=== PATIENT | male | born 2000 | race Two or more races ===

== ENCOUNTER 2022-07-05 18:02 | Inpatient (IN) ==
[2022-07-05] MEDS ORDERED: SODIUM CHLORIDE 0.9% 1000ML 2,000 ML IV ONE (18:27)
--- NOTE | 2022-07-05 18:31 | Emergency Department Note ---
Impression & Plan Rhabdomyolysis, Transaminitis ED Provider Note NAME: DEREK MCMAHAN AGE: 21 SEX: M : 2000 ARRIVES VIA: Walk-In INFORMANT: Patient ED PROVIDER(S): Kash Masters DO CHIEF COMPLAINT: b/l leg pain HPI: Patient is a 21-year-old male who presents to the ER for bilateral leg pain. He was doing leg day and was having pain following this. Started about 4 days ago. He denies any headache or change in vision. No chest pain or shortness of breath. No nausea vomiting or diarrhea. No dysuria, urgency, or frequency. No other exacerbating or remitting factors. He believes that his calves are swelling. He denies any numbness. ROS: See above HPI for pertinent positives & negatives. A total of 10 systems reviewed and were otherwise negative. PAST MEDICAL HISTORY:See Below PAST SURGICAL HISTORY:See Below FAMILY HISTORY:See Below SOCIAL HISTORY:See Below HOME MEDICATIONS:See Below ALLERGIES:See Below VITALS:See Below PHYSICAL EXAMINATION: GENERAL: Sitting up in bed, alert, well appearing, well nourished, no distress, non-toxic EYE EXAM: normal conjunctiva. PERRL and EOM's grossly intact. OROPHARYNX: no exudate, no erythema, lips, buccal mucosa, and tongue normal and mucous membranes are moist NECK: supple, no nuchal rigidity, no adenopathy, non-tender LUNGS: Clear to auscultation. Normal chest wall mechanics HEART: no murmurs, S1 normal and S2 normal ABDOMEN: abdomen soft, non-tender, normo-active bowel sounds, no masses, no rebound or guarding. UPPER EXTREMITIES: upper extremities are grossly normal. LOWER EXTREMITIES: Flexion-extension bilateral hips knees ankles intact. DPs and PTs 2 out of 4. Gross sensation intact. Significant pain on palpation. NEURO EXAM: Normal sensorium, cranial nerves II-XII grossly intact, normal s peech, no gross weakness of arms, no gross weakness of legs. MEDICAL DECISION MAKING: Patient is a 21-year-old male who presents the ER for bilateral calf pain after working out. Has been gradually getting worse. Denies any dark discoloring urine. CBC shows no significant leukocytosis or anemia. BMP was unremarkable. LFTs with a transaminitis. CK elevated had 12,000. Lipase normal. UA with trace protein. COVID was negative. Patient was given 2 L of IV fluids. He was updated bedside. Duplex of the lower extremities was negative. Discussed with the hospitalist for further evaluation Dr. Cuong Matthew. Triage Nursing notes reviewed. Limited review of prior medical records performed Vital Signs: reviewed and remarkable for tachy Differential diagnosis: Infection, dehydration, metabolic abnormality, hypo/hyperglycemia, electrolyte disturbance, anemia, hypoxia, cardiac sources, intracerebral event, toxicologic, neurologic, as well as other pathologies. ER treatment provided: See below Diagnostics interpreted by me: ECG: none Cardiac Monitoring: An order was placed for continuous cardiac monitoring. The monitor shows a rate of 101 with sinus rhythm. Laboratory studies: As stated above and show below. Imaging studies: Duplex of the lower extremities was negative Consultation(s): Discussed with Cuong Matthew for further evaluation Procedures: none Critical Care: None Past Med/Surg History Family History Grandmother Heart disease Social History Smoking Status: Current every day smoker Tobacco Type: Cigarettes packs per day: 1; marital status: Single current occupational status: student Feels Safe at Home: Yes Allergies Allergies Allergy/AdvReac Type Severity Reaction Status Date / Time No Known Allergies Allergy Verified 07/05/22 19:12 Home Meds Home Medications Medication Instructions Recorded Confirmed No Known Home Medications 07/05/22 07/05/22 Results & Data (ED) Vital Signs Vital Signs - 24 hr 07/05/22 18:06 07/05/22 20:08 Temperature 36.9 C Temperature Source Temporal Artery Scan Pulse Rate 119 H Pulse Rate [Apical] 103 H Respiratory Rate 18 18 Respiratory Effort / Characteristics Non-Labored Respiratory Depth Normal Respiratory Pattern Regular Blood Pressure 120/70 Blood Pressure [Left Arm] 117/70 Blood Pressure Mean 86 Blood Pressure Mean [Left Arm] 85 Pulse Oximetry 99 99 Oxygen Delivery Method Room Air Room Air Sepsis Recent Fever Within 48 Hours No Sepsis New/Unexplained Change in Mental Status N/A Sepsis Action Taken by Nursing No Action Required Laboratory Data Result diagrams: 07/05/22 18:56 07/05/22 18:56 Lab Results 07/05/22 07/05/22 07/05/22 Range/Units 18:56 18:56 19:00 WBC 6.68 (4.8-10.8) K/ul RBC 5.20 (4.63-6.08) M/uL Hgb 15.7 (14.0-18.0) g/dl Hct 45.0 (40.1-51.0) % MCV 86.5 (80.0-100.0) fL MCH 30.2 (25.0-34.0) pg MCHC 34.9 (32.0-36.0) g/dL RDW Std Deviation 40.4 (36.4-46.3) fL RDW Coeff of Richard 12.9 (11.5-14.5) % Plt Count 204 (130-400) K/uL MPV 11.5 (9.4-12.4) fL Immature Gran % (Auto) 0.1 % Neut % (Auto) 72.1 % Lymph % (Auto) 17.8 % [facility] % (Auto) 7.8 % Eos % (Auto) 1.9 % Baso % (Auto) 0.3 % Neut # (Auto) 4.81 (1.4-6.5) K/uL Lymph # (Auto) 1.19 L (1.2-3.4) K/uL [facility] # (Auto) 0.52 (0.24-0.82) K/uL Eos # (Auto) 0.13 (0-0.50) K/uL Baso # (Auto) 0.02 (0-0.2) K/uL Immature Gran # (Auto) 0.01 (0.00-0.02) K/uL Sodium 138 (136-145) mmol/L Potassium 4.5 (3.5-5.1) mmol/L Chloride 101 (98-107) mmol/L Carbon Dioxide 28 (21-32) mmol/L Anion Gap 9 (3-11) BUN 18 (6-23) mg/dl Creatinine 1.09 (0.6-1.4) mg/dl Est Cr Clr Drug Dosing 100.8 ml/min Est GFR ( Amer) 113.4 ml/min Est GFR (Non-Af Amer) 97.9 ml/min BUN/Creatinine Ratio 16.5 (10-20) Glucose 63 L (70-99(Fasting)) mg/dl Calcium 9.6 (8.5-10.1) mg/dl Total Bilirubin 0.7 (0.2-1.0) mg/dl AST 172 H (13-39) U/L ALT 71 H (7-52) U/L Alkaline Phosphatase 87 (34-104) U/L Total Creatine Kinase 22492 H (30-223) U/L Total Protein 7.9 (6.0-8.3) gm/dl Albumin 4.8 (3.4-5.0) gm/dl Globulin 3.1 (2.5-4.0) gm/dl Albumin/Globulin Ratio 1.5 (0.9-2) Lipase 38 (11-82) U/L Urine Color Yellow Urine Appearance Clear (Clear) Urine pH 6.5 (4.5-7.5) Ur Specific [place] 1.032 H (1.000-1.030) Urine Protein Trace H (Negative) Urine Glucose (UA) Negative (Negative) Urine Ketones 1+ H (Negative) Urine Blood Negative (Negative) Urine Nitrite Negative (Negative) Urine Bilirubin Negative (Negative) Urine Urobilinogen Negative (Negative) Ur Leukocyte Esterase Negative (Negative) Urine WBC (Auto) 0 (0-5) /hpf Urine RBC (Auto) 0-4 (0-4) /hpf U Hyaline Cast (Auto) 0 (0-5) /lpf U Epithel Cells (Auto) 0-5 (0-5) /lpf Urine Bacteria (Auto) Negative (Negative) SARS-CoV-2, RNA, NAAT (NEGATIVE) 07/05/22 Range/Units 20:10 WBC (4.8-10.8) K/ul RBC (4.63-6.08) M/uL Hgb (14.0-18.0) g/dl Hct (40.1-51.0) % MCV (80.0-100.0) fL MCH (25.0-34.0) pg MCHC (32.0-36.0) g/dL RDW Std Deviation (36.4-46.3) fL RDW Coeff of Richard (11.5-14.5) % Plt Count (130-400) K/uL MPV (9.4-12.4) fL Immature Gran % (Auto) % Neut % (Auto) % Lymph % (Auto) % [facility] % (Auto) % Eos % (Auto) % Baso % (Auto) % Neut # (Auto) (1.4-6.5) K/uL Lymph # (Auto) (1.2-3.4) K/uL [facility] # (Auto) (0.24-0.82) K/uL Eos # (Auto) (0-0.50) K/uL Baso # (Auto) (0-0.2) K/uL Immature Gran # (Auto) (0.00-0.02) K/uL Sodium (136-145) mmol/L Potassium (3.5-5.1) mmol/L Chloride (98-107) mmol/L Carbon Dioxide (21-32) mmol/L Anion Gap (3-11) BUN (6-23) mg/dl Creatinine (0.6-1.4) mg/dl Est Cr Clr Drug Dosing ml/min Est GFR ( Amer) ml/min Est GFR (Non-Af Amer) ml/min BUN/Creatinine Ratio (10-20) Glucose (70-99(Fasting)) mg/dl Calcium (8.5-10.1) mg/dl Total Bilirubin (0.2-1.0) mg/dl AST (13-39) U/L ALT (7-52) U/L Alkaline Phosphatase (34-104) U/L Total Creatine Kinase (30-223) U/L Total Protein (6.0-8.3) gm/dl Albumin (3.4-5.0) gm/dl Globulin (2.5-4.0) gm/dl Albumin/Globulin Ratio (0.9-2) Lipase (11-82) U/L Urine Color Urine Appearance (Clear) Urine pH (4.5-7.5) Ur Specific [place] (1.000-1.030) Urine Protein (Negative) Urine Glucose (UA) (Negative) Urine Ketones (Negative) Urine Blood (Negative) Urine Nitrite (Negative) Urine Bilirubin (Negative) Urine Urobilinogen (Negative) Ur Leukocyte Esterase (Negative) Urine WBC (Auto) (0-5) /hpf Urine RBC (Auto) (0-4) /hpf U Hyaline Cast (Auto) (0-5) /lpf U Epithel Cells (Auto) (0-5) /lpf Urine Bacteria (Auto) (Negative) SARS-CoV-2, RNA, NAAT NEGATIVE (NEGATIVE) Administered Medications Parenteral Electrolytes (Normosol-R) 2,000 mls @ 999 mls/hr IV .Q2H1M ONE Stop: 07/05/22 21:53 Last Admin: 07/05/22 21:11 Dose: 999 mls/hr Documented By: SANTI Discontinued Medications Sodium Chloride (Nss 1000ml) 2,000 mls @ 999 mls/hr IV .Q2H1M ONE Stop: 07/05/22 20:27 Last Infusion: 07/05/22 21:12 Dose: 0 mls/hr Documented By: Admin: 07/05/22 19:04 Dose: 999 mls/hr Documented By: Imaging Data Radiologist's Impression: Venous Doppler Study 07/05/22 18:27 BILATERAL LOWER EXTREMITY VENOUS DOPPLER CLINICAL HISTORY: Bilateral leg pain. COMPARISON STUDY: No previous studies for comparison. TECHNIQUE: Sonography of the deep venous system of the bilateral lower extremities was performed. Compression and augmentation were evaluated. FINDINGS: The bilateral common femoral, superficial femoral and popliteal veins were compressible. Augmentation was normal. Flow was shown within the deep calf vessels. IMPRESSION: No evidence of deep venous thrombus within the bilateral lower extremities. ACT 112: Negative or not required by law. Electronically signed by: Luis Shanks M.D. 07/05/2022 7:54 PM Discharge Plan Visit Data Chief Complaint: Leg Injury/Pain Stated Complaint: LEG PAIN ED Provider: Kash Masters Discharge Problem: Rhabdomyolysis, Transaminitis Forms Stand Alone Forms: [employer] Prescriptions Prescriptions: No Action No Known Home Medications Referrals Referrals: [facility] [Primary Care Provider] -
[2022-07-05 19:18] LABS: Basophils # (auto) 0.02 K/uL (0-0.2); Basophils % (auto) 0.3 %; Eosinophils # (auto) 0.13 K/uL (0-0.50); Eosinophils % (auto) 1.9 %; Hemoglobin 15.7 g/dl (14.0-18.0); Immature Granulocytes # (auto) 0.01 K/uL (0.00-0.02); Immature Granulocytes % (auto) 0.1 %; Lymphocytes # (auto) 1.19 K/uL (1.2-3.4); Lymphocytes % (auto) 17.8 %; Mean Corpuscular Hemoglobin 30.2 pg (25.0-34.0); Mean Corpuscular Hgb Conc 34.9 g/dL (32.0-36.0); Mean Corpuscular Volume 86.5 fL (80.0-100.0); Mean Platelet Volume 11.5 fL (9.4-12.4); Monocytes # (auto) 0.52 K/uL (0.24-0.82); Monocytes % (auto) 7.8 %; Neutrophils # (auto) 4.81 K/uL (1.4-6.5); Neutrophils % (auto) 72.1 %; Platelet Count 204 K/uL (130-400); RDW Coefficient of Variation 12.9 % (11.5-14.5); RDW Standard Deviation 40.4 fL (36.4-46.3); White Blood Count 6.68 K/ul (4.8-10.8)
[2022-07-05 19:24] LABS: Appearance Urine Clear (Clear); Bacteria Urine Automated Negative (Negative); Bilirubin Urine Negative (Negative); Blood Urine Negative (Negative); Cast Urine Automated 0 /lpf (0-5); Color Urine Yellow; Epithelial Cell Urine Auto 0-5 /lpf (0-5); Glucose Urine UA Negative (Negative); Ketones Urine 1+ (Negative); Leukocyte Esterase Urine Negative (Negative); Nitrite Urine Negative (Negative); Protein Urine Trace (Negative); RBC Urine Automated 0-4 /hpf (0-4); Specific Gravity Urine 1.032 (1.000-1.030); Urobilinogen Urine Negative (Negative); WBC Urine Automated 0 /hpf (0-5); pH Urine 6.5 (4.5-7.5)
[2022-07-05 19:37] LABS: BUN Creatinine Ratio 16.5 (10-20); Calcium 9.6 mg/dl (8.5-10.1); Creatinine Clr Calc Pharmacy 100.8 ml/min; Est GFR (African American) 113.4 ml/min; Est GFR (Non-African American) 97.9 ml/min; Potassium 4.5 mmol/L (3.5-5.1)
[2022-07-05 19:50] LABS: Albumin Globulin Ratio 1.5 (0.9-2); Albumin Level 4.8 gm/dl (3.4-5.0); Bilirubin,Total 0.7 mg/dl (0.2-1.0); Globulin 3.1 gm/dl (2.5-4.0); Total Protein 7.9 gm/dl (6.0-8.3)
[2022-07-05] MEDS ORDERED: NORMOSOL-R 2,000 ML IV ONE (19:53)
--- NOTE | 2022-07-05 19:56 | Ultrasound Report ---
BILATERAL LOWER EXTREMITY VENOUS DOPPLER CLINICAL HISTORY: Bilateral leg pain. COMPARISON STUDY: No previous studies for comparison. TECHNIQUE: Sonography of the deep venous system of the bilateral lower extremities was performed. Co mpression and augmentation were evaluated. FINDINGS: The bilateral common femoral, superficial femoral and popliteal veins were compressible. A ugmentation was normal. Flow was shown within the deep calf vessels. IMPRESSION: No evidence of deep venous thrombus within the bilateral lower extremities. ACT 112: Negative or not required by law. Electronically signed by: Luis Shanks M.D. 07/05/2022 7:54 PM
--- NOTE | 2022-07-05 20:49 | History & Physical Report ---
Date of Service July 05, 2022 Assessment & Plan (1) Rhabdomyolysis: Plan: Rhabdomyolysis/transaminitis/elevated CK level- Recommend discontinuance of all protein supplement powders Will be given 4 L IV fluids in the ED, 2 L normal saline and 2 L of Normosol Will follow serial CBC with differential, chemistry profile, magnesium level and creatinine kinase level Patient be encouraged to continue his oral intake of fluids No bump in creatinine at this time Venous Dopplers negative for DVT (2) Transaminitis: (3) Elevated creatine kinase level: History of Present Illness Chief Complaint: The patient presents to the emergency department with bilateral leg pain after switching his exercise program from upper body to lower body starting about 4 days ago. Primary Care Provider: [facility] The patient is a 21-year-old male with past medical history including pilonidal abscess and asthma, who presents emergency department after changing his exercise regimen to include primarily leg exercises, and developed severe leg pain. He does of note also take a protein powder supplement. He denies any recent travels or sick exposures. Allergies Allergy/AdvReac Type Severity Reaction Status Date / Time No Known Allergies Allergy Verified 07/05/22 19:12 Home Medications Medication Instructions Recorded Confirmed Type No Known Home Medications 07/05/22 07/05/22 History Past Med/Surg History Family History Grandmother Heart disease Social History Smoking Status: Current every day smoker Tobacco Type: Cigarettes packs per day: 1; Do You Dip or Chew Tobacco: No; Hx Alcohol Use: No Hx Substance Use: No Preferred Language: Upper Sorbian Communication Ability: Effective Bottom Buffer Required: No Beliefs That Will Affect Care: None marital status: Single Current Living Situation: Other Current Living Situation Comment: roommates current occupational status: student Other Information That Helps Us Care for You: No Feels Safe at Home: Yes Safety Concerns: Feels Safe At This Time Review of Systems Review of Systems: The patient denies chest pain, palpitations, shortness of breath, dyspnea on exertion, cough, sore throat, fevers, chills, sweats, weight change, fatigue, nausea, vomiting, diarrhea , constipation, abdominal pain, pelvic pain, blood in urine or stool, dysuria, urinary frequency or urgency, lightheadedness, dizziness, headache, memory loss, loss of consciousness, rash, abnormal bruising or bleeding, imbalance, focal or generalized weakness, numbness or tingling in arms, back or neck pain, or night sweats. The review of systems is otherwise negative other than for that already noted above, and at least 10 systems have been reviewed. Physical Exam Physical Exam: The patient is awake, alert and oriented 3, well developed and well nourished, normocephalic and atraumatic, lying in bed and in no acute distress. HEENT--PERRL, EOMI, mucous membranes and oropharynx dry. Neck--supple. No JVD. No bruits. Thyroid normal, trachea midline, no adenopathy. Heart--normal S1 and S2. No murmurs, rubs or gallops. Lungs--clear bilaterally, no respiratory distress, no accessory muscle use. Abdomen--normal bowel sounds and soft. Nontender. Nondistended, no hernias or masses, no organomegaly. Extremities--no cyanosis or clubbing. No edema. There are good distal pulses b/l. Dermatologic--normal skin turgor, normal color, no abnormal lymph nodes, no rash. Neurologic--cranial nerves II through XII grossly intact. Rheumatologic--normal range of motion. Psychiatric--normal affect. Results & Data Results & Data ([facility]) Vital Signs (Past 12 Hours) Vital Signs Temp Pulse Pulse Resp BP BP Pulse Ox 07/05/22 20:08 103 H 18 117/70 99 07/05/22 18:06 36.9 C 119 H 18 120/70 99 O2 Del Method 07/05/22 20:08 Room Air 07/05/22 18:06 Room Air Laboratory Results Laboratory Results WBC 6.68 K/ul (4.8-10.8) 07/05/22 18:56 RBC 5.20 M/uL (4.63-6.08) 07/05/22 18:56 Hgb 15.7 g/dl (14.0-18.0) 07/05/22 18:56 Hct 45.0 % (40.1-51.0) 07/05/22 18:56 MCV 86.5 fL (80.0-100.0) 07/05/22 18:56 MCH 30.2 pg (25.0-34.0) 07/05/22 18:56 MCHC 34.9 g/dL (32.0-36.0) 07/05/22 18:56 RDW Std Deviation 40.4 fL (36.4-46.3) 07/05/22 18:56 RDW Coeff of Richard 12.9 % (11.5-14.5) 07/05/22 18:56 Plt Count 204 K/uL (130-400) 07/05/22 18:56 MPV 11.5 fL (9.4-12.4) 07/05/22 18:56 Immature Gran % (Auto) 0.1 % 07/05/22 18:56 Neut % (Auto) 72.1 % 07/05/22 18:56 Lymph % (Auto) 17.8 % 07/05/22 18:56 [place] % (Auto) 7.8 % 07/05/22 18:56 Eos % (Auto) 1.9 % 07/05/22 18:56 Baso % (Auto) 0.3 % 07/05/22 18:56 Neut # (Auto) 4.81 K/uL (1.4-6.5) 07/05/22 18:56 Lymph # (Auto) 1.19 K/uL (1.2-3.4) L 07/05/22 18:56 [place] # (Auto) 0.52 K/uL (0.24-0.82) 07/05/22 18:56 Eos # (Auto) 0.13 K/uL (0-0.50) 07/05/22 18:56 Baso # (Auto) 0.02 K/uL (0-0.2) 07/05/22 18:56 Immature Gran # (Auto) 0.01 K/uL (0.00-0.02) 07/05/22 18:56 Sodium 138 mmol/L (136-145) 07/05/22 18:56 Potassium 4.5 mmol/L (3.5-5.1) 07/05/22 18:56 Chloride 101 mmol/L (98-107) 07/05/22 18:56 Carbon Dioxide 28 mmol/L (21-32) 07/05/22 18:56 Anion Gap 9 (3-11) 07/05/22 18:56 BUN 18 mg/dl (6-23) 07/05/22 18:56 Creatinine 1.09 mg/dl (0.6-1.4) 07/05/22 18:56 Est Cr Clr Drug Dosing 100.8 ml/min 07/05/22 18:56 Est GFR ( Amer) 113.4 ml/min 07/05/22 18:56 Est GFR (Non-Af Amer) 97.9 ml/min 07/05/22 18:56 BUN/Creatinine Ratio 16.5 (10-20) 07/05/22 18:56 Glucose 63 mg/dl (70-99(Fasting)) L 07/05/22 18:56 POC Glucose 111 mg/dl (70-99) H 07/05/22 22:33 Calcium 9.6 mg/dl (8.5-10.1) 07/05/22 18:56 Total Bilirubin 0.7 mg/dl (0.2-1.0) 07/05/22 18:56 AST 172 U/L (13-39) H 07/05/22 18:56 ALT 71 U/L (7-52) H 07/05/22 18:56 Alkaline Phosphatase 87 U/L (34-104) 07/05/22 18:56 Total Creatine Kinase 77558 U/L (30-223) H 07/05/22 18:56 Total Protein 7.9 gm/dl (6.0-8.3) 07/05/22 18:56 Albumin 4.8 gm/dl (3.4-5.0) 07/05/22 18:56 Globulin 3.1 gm/dl (2.5-4.0) 07/05/22 18:56 Albumin/Globulin Ratio 1.5 (0.9-2) 07/05/22 18:56 Lipase 38 U/L (11-82) 07/05/22 18:56 Urine Color Yellow 07/05/22 19:00 Urine Appearance Clear (Clear) 07/05/22 19:00 Urine pH 6.5 (4.5-7.5) 07/05/22 19:00 Ur Specific [place] 1.032 (1.000-1.030) H 07/05/22 19:00 Urine Protein Trace (Negative) H 07/05/22 19:00 Urine Glucose (UA) Negative (Negative) 07/05/22 19:00 Urine Ketones 1+ (Negative) H 07/05/22 19:00 Urine Blood Negative (Negative) 07/05/22 19:00 Urine Nitrite Negative (Negative) 07/05/22 19:00 Urine Bilirubin Negative (Negative) 07/05/22 19:00 Urine Urobilinogen Negative (Negative) 07/05/22 19:00 Ur Leukocyte Esterase Negative (Negative) 07/05/22 19:00 Urine WBC (Auto) 0 /hpf (0-5) 07/05/22 19:00 Urine RBC (Auto) 0-4 /hpf (0-4) 07/05/22 19:00 U Hyaline Cast (Auto) 0 /lpf (0-5) 07/05/22 19:00 U Epithel Cells (Auto) 0-5 /lpf (0-5) 07/05/22 19:00 Urine Bacteria (Auto) Negative (Negative) 07/05/22 19:00 SARS-CoV-2, RNA, NAAT NEGATIVE (NEGATIVE) 07/05/22 20:10 Impressions Venous Doppler Study 07/05/22 18:27 BILATERAL LOWER EXTREMITY VENOUS DOPPLER CLINICAL HISTORY: Bilateral leg pain. COMPARISON STUDY: No previous studies for comparison. TECHNIQUE: Sonography of the deep venous system of the bilateral lower extremi ties was performed. Compression and augmentation were evaluated. FINDINGS: The bilateral common femoral, superficial femoral and popliteal veins were compressible. Augmentation was normal. Flow was shown within the deep calf vessels. IMPRESSION: No evidence of deep venous thrombus within the bilateral lower extremities. ACT 112: Negative or not required by law. Electronically signed by: Luis Shanks M.D. 07/05/2022 7:54 PM Code Status & VTE Plan Code Status Full code VTE Prophylaxis Plan VTE Prophylaxis will be ordered: Yes
[2022-07-05] MEDS ORDERED: ONDANSETRON INJ 2 MG/ML 2 ML VIAL IV PRN (22:28)
[2022-07-05] MEDS ORDERED: ACETAMINOPHEN 325 MG TAB PO PRN (22:28)
--- NOTE | 2022-07-06 01:47 | Billing Data ---
Date of Service July 06, 2022 Coding Level of Care Code 88162 Initial Inpt Care Lvl 2
[2022-07-06 07:42] LABS: Basophils # (auto) 0.01 K/uL (0-0.2); Basophils % (auto) 0.1 %; Eosinophils # (auto) 0.21 K/uL (0-0.50); Eosinophils % (auto) 3.1 %; Hematocrit (blood only) 38.1 % (40.1-51.0); Hemoglobin 12.9 g/dl (14.0-18.0); Immature Granulocytes # (auto) 0.03 K/uL (0.00-0.02); Immature Granulocytes % (auto) 0.4 %; Lymphocytes % (auto) 40.7 %; Mean Corpuscular Hemoglobin 29.4 pg (25.0-34.0); Mean Corpuscular Hgb Conc 33.9 g/dL (32.0-36.0); Mean Corpuscular Volume 86.8 fL (80.0-100.0); Mean Platelet Volume 12.1 fL (9.4-12.4); Monocytes # (auto) 0.64 K/uL (0.24-0.82); Monocytes % (auto) 9.3 %; Neutrophils # (auto) 3.19 K/uL (1.4-6.5); Neutrophils % (auto) 46.4 %; Platelet Count 165 K/uL (130-400); RDW Coefficient of Variation 12.9 % (11.5-14.5); RDW Standard Deviation 40.9 fL (36.4-46.3); Red Blood Count 4.39 M/uL (4.63-6.08); White Blood Count 6.88 K/ul (4.8-10.8)
[2022-07-06 07:55] LABS: Partial Thromboplastin Time 27.8 Seconds (21.0-31.0); Prothrombin Time 11.1 Seconds (9.0-12.0)
[2022-07-06 08:12] LABS: Alanine Aminotransferase 53 U/L (7-52); Albumin Globulin Ratio 1.7 (0.9-2); Albumin Level 3.6 gm/dl (3.4-5.0); Alkaline Phosphatase 64 U/L (34-104); Anion Gap 5 (3-11); Aspartate Aminotransferase 111 U/L (13-39); BUN Creatinine Ratio 20.8 (10-20); Bilirubin,Total 0.4 mg/dl (0.2-1.0); Blood Urea Nitrogen 15 mg/dl (6-23); Calcium 8.3 mg/dl (8.5-10.1); Carbon Dioxide 28 mmol/L (21-32); Chloride 107 mmol/L (98-107); Creatinine Clr Calc Pharmacy 154.7 ml/min; Est GFR (African American) > 150.0 ml/min; Est GFR (Non-African American) 135.2 ml/min; Globulin 2.1 gm/dl (2.5-4.0); Glucose 103 mg/dl (70-99(Fasting)); Potassium 4.3 mmol/L (3.5-5.1); Sodium 140 mmol/L (136-145); Total Protein 5.7 gm/dl (6.0-8.3)
[2022-07-06 08:31] LABS: Creatine Kinase 8556 U/L (30-223)
[2022-07-06] MEDS: SODIUM CHLORIDE 0.9% 1000ML 1,000 ML IV SCH ×3 (10:17→22:07)
--- NOTE | 2022-07-06 21:20 | Hospitalist Progress Note ---
Date of Service July 06, 2022 Assessment & Plan (1) Rhabdomyolysis: Plan: 2nd to several heavy weight lifting work-outs in the days leading up to this admission. Had been sedentary for several months prior. Protein supplementation likely played minimal role. Creatinine is stable. He wanted his IV fluids shut off but I explained to him the importance of such. He was complaining about his IV and his right hand swelling from such. Simply elevate the hand/arm on pillows. Cont IVF. Repeat BMP, CPK, ast/alt in am. NO EVIDENCE OF COMPARTMENT SYNDROME OF EITHER LEG. (2) Transaminitis: Plan: Likely 2nd to #1. Does not drink etoh. If they persist despite improvement in CPK then obtain RUQ u/s. Admission and Anticipated Discharge Date Admission Date: July 05, 2022 Subjective c/o b/l calf pain/myalgia hurts to move legs and get up from the bed complaining about his right arm IV and right hand swelling during the day he had asked for his IV fluids to be shut off during my visit he asked to be discharged soon because he has final exams on Thursday Review of Systems Review of Systems: psych - denies ANY etoh at any time cv - no cp pulm - no dyspnea GI - no nausea Physical Exam Physical Exam: gen - NAD mouth - MMM heart - RRR, s1 s2, no murmur lungs - CTA b/l abd - soft NT ND BS+; no hepatomegaly musculo - no evidence of compartment syndrome of the thighs b/l or the tib-fib regions b/l; pulses both feet 2+; no gross swelling or tenseness of either thigh or calf muscle ext - no peripheral edema of legs; mild swelling right hand Results & Data Results & Data ([facility]) Vital Signs (Past 12 Hours) Vital Signs Temp Pulse Resp BP Pulse Ox O2 Del Method 07/06/22 15:27 37.2 C 76 18 102/78 99 Room Air Laboratory Results Laboratory Results - last 24 hr 07/05/22 07/06/22 07/06/22 22:33 06:54 06:54 WBC 6.88 RBC 4.39 L Hgb 12.9 L Hct 38.1 L MCV 86.8 MCH 29.4 MCHC 33.9 RDW Std Deviation 40.9 RDW Coeff of Richard 12.9 Plt Count 165 MPV 12.1 Immature Gran % (Auto) 0.4 Neut % (Auto) 46.4 Lymph % (Auto) 40.7 [place] % (Auto) 9.3 Eos % (Auto) 3.1 Baso % (Auto) 0.1 Neut # (Auto) 3.19 Lymph # (Auto) 2.80 [place] # (Auto) 0.64 Eos # (Auto) 0.21 Baso # (Auto) 0.01 Immature Gran # (Auto) 0.03 H PT 11.1 INR 1.0 APTT 27.8 PTT Ratio 1.0 Sodium Potassium Chloride Carbon Dioxide Anion Gap BUN Creatinine Est Cr Clr Drug Dosing Est GFR ( Amer) Est GFR (Non-Af Amer) BUN/Creatinine Ratio Glucose POC Glucose 111 H Calcium Magnesium Total Bilirubin AST ALT Alkaline Phosphatase Total Creatine Kinase Total Protein Albumin Globulin Albumin/Globulin Ratio 07/06/22 06:54 WBC RBC Hgb Hct MCV MCH MCHC RDW Std Deviation RDW Coeff of Richard Plt Count MPV Immature Gran % (Auto) Neut % (Auto) Lymph % (Auto) [place] % (Auto) Eos % (Auto) Baso % (Auto) Neut # (Auto) Lymph # (Auto) [place] # (Auto) Eos # (Auto) Baso # (Auto) Immature Gran # (Auto) PT INR APTT PTT Ratio Sodium 140 Potassium 4.3 Chloride 107 Carbon Dioxide 28 Anion Gap 5 BUN 15 Creatinine 0.72 D Est Cr Clr Drug Dosing 154.7 Est GFR ( Amer) > 150.0 Est GFR (Non-Af Amer) 135.2 BUN/Creatinine Ratio 20.8 H Glucose 103 H POC Glucose Calcium 8.3 L Magnesium 2.0 Total Bilirubin 0.4 AST 111 H ALT 53 H Alkaline Phosphatase 64 Total Creatine Kinase 8556 H Total Protein 5.7 L D Albumin 3.6 Globulin 2.1 L Albumin/Globulin Ratio 1.7 PG Care Time/CCT Total # of Minutes Spent Total Time Spent with Patient: Total time spent is greater than 50% in coordination of care (as documented) at patient's floor/unit and/or counseling patient: Coding Level of Care Code 03369 Subseq Hosp Care Lvl 2 Diagnoses Rhabdomyolysis M62.82 Transaminitis R74.01
[2022-07-07 07:26] LABS: Anion Gap 4 (3-11); BUN Creatinine Ratio 13.3 (10-20); Blood Urea Nitrogen 10 mg/dl (6-23); Calcium 8.6 mg/dl (8.5-10.1); Carbon Dioxide 28 mmol/L (21-32); Chloride 107 mmol/L (98-107); Creatinine Clr Calc Pharmacy 148.5 ml/min; Est GFR (African American) > 150.0 ml/min; Glucose 103 mg/dl (70-99(Fasting)); Potassium 3.7 mmol/L (3.5-5.1); Sodium 139 mmol/L (136-145)
[2022-07-07 07:28] LABS: Alanine Aminotransferase 59 U/L (7-52); Albumin Globulin Ratio 1.7 (0.9-2); Albumin Level 3.8 gm/dl (3.4-5.0); Alkaline Phosphatase 66 U/L (34-104); Aspartate Aminotransferase 113 U/L (13-39); Bilirubin,Total 0.3 mg/dl (0.2-1.0); Globulin 2.3 gm/dl (2.5-4.0); Total Protein 6.1 gm/dl (6.0-8.3)
[2022-07-07 07:40] LABS: Creatine Kinase 7353 U/L (30-223)
[2022-07-07] MEDS: SODIUM CHLORIDE 0.9% 1000ML 1,000 ML IV SCH ×3 (11:33→19:47)
--- NOTE | 2022-07-07 14:31 | Ultrasound Report ---
ABDOMINAL ULTRASOUND, RIGHT UPPER QUADRANT HISTORY: abnormal LFTs. COMPARISON: None. FINDINGS: Pancreas: The visualized pancreas demonstrates a normal echotexture. Liver: Unremarkable. Gallbladder: There is a single 8 mm mobile stone within the gallbladder. No gallbladder wall thickeni ng. CBD: 4 mm. Right kidney: No hydronephrosis. IMPRESSION: Cholelithiasis without evidence for acute cholecystitis. ACT 112: Negative or not required by law. Electronically signed by: Lang Torres M.D. 07/07/2022 2:30 PM
--- NOTE | 2022-07-07 22:06 | Hospitalist Progress Note ---
Date of Service July 07, 2022 Assessment & Plan (1) Rhabdomyolysis: Plan: 2nd to several heavy weight lifting work-outs in the days leading up to this admission. Had been sedentary for several months prior. Protein supplementation he was taking with these workouts likely played minimal role. Creatinine remains stable. CPK has decreased overnight but not robustly. Increase IV fluid rate. Repeat labs in am including BMP, CPK, ast/alt. There continues to be NO EVIDENCE OF COMPARTMENT SYNDROME OF EITHER LEG. (2) Transaminitis: Plan: Likely 2nd to #1. Does not drink etoh. RUQ u/s with a gallstone but normal appearing liver. (3) Gallstone: Plan: handout given no Rx at this time Admission and Anticipated Discharge Date Admission Date: July 05, 2022 Subjective patient states he is feeling better less myalgia and less muscle soreness/stiffness in his legs he has been stretching his legs and ambulating in the room eating/drinking well urine is clear yellow; not brown Review of Systems Review of Systems: pulm - no dyspnea GI - no abd pain, nausea, emesis CV - no pain musculo - pain in calf muscles improved Physical Exam Physical Exam: gen - NAD, awake, alert mouth - MMM heart - RRR, s1 s2, no murmur lungs - CTA b/l abd - soft NT ND BS+; no hepatomegaly musculo - no evidence of compartment syndrome of the thighs b/l or the tib-fib regions b/l; pulses both feet 2+ ext - no peripheral edema of legs Results & Data Results & Data ([facility]) Vital Signs (Past 12 Hours) Vital Signs Temp Pulse Resp BP Pulse Ox O2 Del Method 07/07/22 16:40 81 132/68 07/07/22 15:30 37 C 86 16 94/50 L 100 Room Air Laboratory Results Laboratory Results - last 24 hr 07/07/22 06:35 Sodium 139 Potassium 3.7 Chloride 107 Carbon Dioxide 28 Anion Gap 4 BUN 10 Creatinine 0.75 Est Cr Clr Drug Dosing 148.5 Est GFR ( Amer) > 150.0 Est GFR (Non-Af Amer) 133.0 BUN/Creatinine Ratio 13.3 Glucose 103 H Calcium 8.6 Total Bilirubin 0.3 AST 113 H ALT 59 H Alkaline Phosphatase 66 Total Creatine Kinase 7353 H Total Protein 6.1 Albumin 3.8 Globulin 2.3 L Albumin/Globulin Ratio 1.7 PG Care Time/CCT Total # of Minutes Spent Total Time Spent with Patient: Total time spent is greater than 50% in coordination of care (as documented) at patient's floor/unit and/or counseling patient: Coding Level of Care Code 45740 Subseq Hosp Care Lvl 2 Diagnoses Rhabdomyolysis M62.82 Transaminitis R74.01 Gallstone K80.20
[2022-07-08] MEDS: SODIUM CHLORIDE 0.9% 1000ML 1,000 ML IV SCH ×2 (02:30→07:38)
[2022-07-08 09:08] LABS: Anion Gap 2 (3-11); Blood Urea Nitrogen 8 mg/dl (6-23); Carbon Dioxide 31 mmol/L (21-32); Chloride 107 mmol/L (98-107); Potassium 4.2 mmol/L (3.5-5.1); Sodium 140 mmol/L (136-145)
[2022-07-08 09:09] LABS: BUN Creatinine Ratio 10.8 (10-20); Calcium 8.6 mg/dl (8.5-10.1); Creatinine Clr Calc Pharmacy 150.6 ml/min; Est GFR (African American) > 150.0 ml/min; Est GFR (Non-African American) 133.7 ml/min; Glucose 96 mg/dl (70-99(Fasting))
[2022-07-08 09:14] LABS: Alanine Aminotransferase 56 U/L (7-52); Aspartate Aminotransferase 77 U/L (13-39)
[2022-07-08 09:31] LABS: Creatine Kinase 3626 U/L (30-223)
--- NOTE | 2022-07-08 14:42 | Discharge Summary ---
Date of Service July 08, 2022 Admission HPI Per Admitting Provider The patient is a 21-year-old male with past medical history including pilonidal abscess and asthma, who presents emergency department after changing his exercise regimen to include primarily leg exercises, and developed severe leg pain. He does of note also take a protein powder supplement. He denies any recent travels or sick exposures. Principal Diagnosis Rhabdomyolysis Discharge Exam gen - NAD, awake, alert mouth - MMM heart - RRR, s1 s2, no murmur lungs - CTA b/l abd - soft NT ND BS+; no hepatomegaly musculo - no evidence of compartment syndrome of the thighs b/l or the tib-fib regions b/l; pulses both feet 2+; no TTP over legs ext - no peripheral edema of legs Discharge Data Allergies Allergy/AdvReac Type Severity Reaction Status Date / Time No Known Allergies Allergy Verified 07/05/22 19:12 Consultations 07/05/22 19:54 ED Decision to Admit Stat Ordered Studies 07/05/22 18:27 US venous doppler LE BI Stat 07/07/22 11:03 US gallbladder Routine Hospital Course (1) Rhabdomyolysis: 2nd to several heavy weight lifting work-outs in the days leading up to this admission. Had been sedentary for several months prior. Protein supplementation he was taking with these workouts likely played minimal role. Creatinine remains stable. [place] [address] on admission to 3000 on day of discharge There continues to be NO EVIDENCE OF COMPARTMENT SYNDROME OF EITHER LEG. He received copious IV fluids and will continue to hydrate orally on discharge Recommend having follow up CPK and CMP in 1 week with his PCP in [facility] as he is flying home soon. Recommend light activity only until rhabdo completely resolved (2) Transaminitis: Likely 2nd to rhabdo Does not drink etoh. RUQ u/s with a gallstone but normal appearing liver. LFTs improving and almost normalized on day of discharge (3) Gallstone: handout given no Rx at this time Plan Dispo-stable for dc to home Total Time Total Time Spent Total Time Spent (In Minutes): 35 min Discharge Plan Discharge Items Patient Disposition: Home - Self-Care Reason For Visit: RHABDOMYOLYSIS Discharge Diagnosis: Rhabdomyolysis Condition on Discharge: Good Activity: As commented below Lifting: No more than 5 pounds Bathing: No limitations Exercise/Sports: Wait until after follow-up appointment Exercise Comment: No strenuous exercise until your rhabdomyolysis is completely resolved Non-emergency contact: Primary Care Provider Call non-emergency contact if: you have any medication questions and your symptoms worsen Follow-up/Referrals: [facility] [Primary Care Provider] - (Please follow up with your doctor in [facility] next week.) Diet: Regular Addtl Attending Provider Instructions: You should continue to drink plenty of fluids and monitor your urine color-it should remain light yellow in color. If you develop worsening pain or swelling in the legs, please see your doctor right away. You will need to have blood work checked within one week to include a CPK and Liver enzymes (AST,ALT) to ensure your numbers are continuing to improve. Your CPK on the day of discharge was down to 3636. Your AST was down to 77 and your ALT was down to 56. Pending Studies at Discharge: No Stand-Alone Forms: My [facility], Work/School Release, Smoking Cessation Medications and DC Order Prescriptions: No Action No Known Home Medications Discharge Orders: Discharge Order (Routine); Ordered 07/08/22 Ordered By: Tammi Loving/Other Patient Handouts: Rhabdomyolysis, What Are Gallstones Admission Data Admit Date/Time: 07/05/22 20:16 Attending Provider: Tammi Rivera Admit Provider: Cuong Matthew Primary Care Provider: [facility] Other Providers: Cuong Matthew Coding Level of Care Code D/C DAY MANAGEMENT >30 MINS Diagnoses Rhabdomyolysis M62.82 Transaminitis R74.01 Gallstone K80.20
== END 2022-07-08 16:03 | disposition home or self-care (01) | DRG 558 ==
LOC: ED 18:02 → 3E 20:16 → SUATTDRO 20:16 → 3E 21:25